=== PATIENT | female | born 1950 | race African-American/Black ===

== ENCOUNTER 2016-12-01 15:44 | Emergency (ER) | payer MEDICARE, BC ==
[~2016-12-01] VITALS: Ht 160 cm; Wt 75.0 kg
[~2016-12-01 15:44] MED LIST: CARV12.52 PO; CLON0.1D PO; HYDR-3533 PO; LASI20TA PO; PRED20 PO
[2016-12-01 15:49] VITALS: BP 143/91; PULSE 85; RESP 22; TEMP 98.7; O2SAT 95
[2016-12-01 15:57] VITALS: BP 164/81; PULSE 58; RESP 16; O2SAT 98
[2016-12-01 16:00] VITALS: BP 204/86; PULSE 58; RESP 16; TEMP 98; O2SAT 100
[2016-12-01] MEDS ORDERED: CLON0.2T PO (16:00)
[2016-12-01] MEDS ORDERED: METO100T9 PO (16:00)
[2016-12-01] MEDS ORDERED: FURO1TAB62 PO (16:00)
[2016-12-01] MEDS ORDERED: CARV25TA PO (16:00)
[2016-12-01] MEDS ORDERED: CLON0.3D T-DERMAL (16:02)
--- NOTE | 2016-12-01 16:23 | PD ---
HPI Chief Complaint: Hypertension Time Seen by Provider: 15:51 Travel History International Travel<30 days: No Contact w/Intl Traveler<30days: No Traveled to known affect area: No History of Present Illness HPI 66yo F with PMH of HTN on 4 different blood pressure medications here with c/o elevated blood pressure today. States systolic was in the 200s. Denies any fever, headache, visual changes, chest pain, sob, n/v, abdominal pain, focal weakness or numbness. PFSH Past Medical History Cardiovascular Problems: Yes Gout: Yes Hypertension: Yes Musculoskeletal: Yes (gout) Tetanus Vaccination: < 5 Years Influenza Vaccination: Yes Menopausal: Yes Past Surgical History Hysterectomy: Yes Social History Alcohol Use: No Tobacco Use: No (pt denies ) Substance Use: No (pt denies ) Allergies-Medications (Allergen,Severity, Reaction): Coded Allergies: Penicillin (Verified Allergy, Severe, rash, 12/01/16) Reported Meds & Prescriptions Reported Meds & Active Scripts Active Reported Clonidine 168 HR Patch (Clonidine HCl) 0.3 Mg/24 Hr Patch 1 Patch T-DERMAL Q7D Carvedilol 25 Mg Tab 25 Mg PO BID Clonidine (Clonidine HCl) 0.2 Mg Tab 0.2 Mg PO DAILY Metoprolol Succinate ER 24 HR (Metoprolol Succinate) 100 Mg Tab 100 Mg PO DAILY Lasix (Furosemide) 20 Mg Tab 20 Mg PO DAILY Review of Systems Except as stated in HPI: all other systems reviewed are Neg Physical Exam Narrative GENERAL: 66yo F not in distress. SKIN: Focused skin assessment warm/dry. HEAD: Atraumatic. Normocephalic. EYES: Pupils equal and round. No scleral icterus. No injection or drainage. ENT: No nasal bleeding or discharge. Mucous membranes pink and moist. NECK: Trachea midline. No JVD. CARDIOVASCULAR: Regular rate and rhythm. No murmur appreciated. RESPIRATORY: No accessory muscle use. Clear to auscultation. Breath sounds equal bilaterally. GASTROINTESTINAL: Abdomen soft, non-tender, nondistended. No rebound tenderness or guarding. MUSCULOSKELETAL: No obvious deformities. No clubbing. No cyanosis. No edema. NEUROLOGICAL: Awake and alert. No obvious cranial nerve deficits. Motor grossly within normal limits. Normal speech. PSYCHIATRIC: Appropriate mood and affect; insight and judgment normal. Data Data Last Documented VS Vital Signs Date Time Temp Pulse Resp B/P Pulse Ox O2 Delivery O2 Flow Rate FiO2 6/29/17 16:00 98.0 58 16 204/86 100 Room Air Orders Basic Metabolic Panel (Bmp) (12/01/16 16:19) Labs Laboratory Tests Test 12/01/16 16:25 Sodium Level 142 MEQ/L Potassium Level 3.4 MEQ/L Chloride Level 104 MEQ/L Carbon Dioxide Level 31.5 MEQ/L Anion Gap 7 MEQ/L Blood Urea Nitrogen 13 MG/DL Creatinine 0.88 MG/DL Estimat Glomerular Filtration 77 ML/MIN Rate Random Glucose 100 MG/DL Calcium Level 9.2 MG/DL MDM Medical Decision Making Medical Screen Exam Complete: Yes Emergency Medical Condition: Yes Differential Diagnosis Uncontrolled HTN vs. end organ damage Narrative Course 66yo F with elevated blood pressure at home. Pt has HTN and is on 4 different blood pressure medication. BP: 164/81. Pt is asymptomatic. Lab reviewed, normal creatinine. Return precautions given. Diagnosis Primary Impression: Elevated blood pressure reading Patient Instructions: General Instructions Departure Forms: Tests/Procedures Additional Instructions: Please follow up with your PMD in 3-7 days. Return to the ED if symptoms worsen. Med/Other Pt SpecificInfo: No Change to Meds Disposition: 01 DISCHARGE HOME Condition: Stable Prabha Chase Dec 01, 2016 16:22
[2016-12-01 17:39] LABS: BICARBONATE 31.5 MEQ/L (21.0-32.0); POTASSIUM 3.4 MEQ/L (3.5-5.1)
[2016-12-01 18:20] VITALS: BP 183/87; TEMP 97.8
== END 2016-12-01 18:20 | disposition home or self-care (01) ==
LOC: NEPC 15:44
DX: I10 Essential (primary) hypertension (principal); M10.9 Gout, unspecified; Z79.899 Other long term (current) drug therapy
CPT/HCPCS: 80048; 99283